=== PATIENT | male | born 1955 | race Caucasian/White ===

== ENCOUNTER → 2018-03-27 | Outpatient (CLI) | payer BC ==
--- NOTE | 2018-03-27 17:25 | CONS ---
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 HISTORY OF PRESENT ILLNESS/SLEEP WAKE EVALUATION: SLEEP SCHEDULE: Patient usual sleep schedule on weekdays from 10:30 p.m. until 5:20 a.m., on weekends from 11 p.m. until around 6:50, 6:55 am. FALLING ASLEEP: No problems with falling asleep, although he has TV set in bedroom. DURING SLEEP: He usually sleeps on the side position with his with snoring. The patient wakes up from sleep up to 2 times with up to 1 episode of nocturia. DURING THE DAY/SLEEP WAKE EVALUATION: He denied any significant excessive daytime sleepiness and does not take any naps. [place] Sleepiness Scale is 2. No history of hypnagogic hallucinations, sleep paralysis or cataplexy. PAST MEDICAL HISTORY: Basically negative. PAST SURGICAL HISTORY: Status post surgical treatment of melanoma 2004, umbilical hernia in 2012, right ankle repair 2013, pilonidal cyst surgery and hemorrhoidectomy. MEDICATIONS: Baby aspirin and turmeric. SOCIAL HISTORY: Negative for smoking or using alcohol. FAMILY HISTORY: Heart problems, snoring, cancer, diabetes. REVIEW OF SYSTEMS: Basically negative. PHYSICAL EXAM: gentleman without distress. BP 168/94, HR 82, RR 16, height 5 feet 11 inches, weight 231.8, body mass index 32.2, temperature 97.6, oxygen saturation at room air 97%. Oropharynx: Low position of soft palate. Mallampati 4. Some restriction of nasal breathing. Wide neck 16-1/2 inches in circumference. NECK: Supple, no JVD. Thyroid is not palpable. LUNGS Clear to percussion and to auscultation. Good air exchange. No wheezing or rhonchi. HEART S1, S2 regular. No murmurs, gallops, or rubs. ABDOMEN Soft and nontender. Bowel sounds are present. No organomegaly appreciated. EXTREMITIES No clubbing or cyanosis. STUDENT DEVELOPMENT SPECIALIST Awake, alert, and oriented X3. Cranial nerves 2 to 7 intact. There is no fasciculation or atrophy. noted. No focal deficits observed. IMPRESSION: 1. Snoring, extremely low position of soft palate, Mallampati 4, wide neck 16.5 inches in circumference. Possible obstructive sleep apnea-hypopnea syndrome. 2. Increased blood pressure today in the office. 3. History of melanoma status post surgical treatment in 2004. 4. Status post umbilical hernia repair 2012. 5. Status post right ankle surgery 2013. 6. Status post pilonidal cyst surgery. 7. Status post hemorrhoidectomy. PLAN: 1. Polysomnography for evaluation of patient's breathing during sleep. 2. CPAP/BiPAP titration if sleep study confirms obstructive sleep apnea-hypopnea syndrome. 3. Preferable position during sleep on the side. 4. No driving if patient feels any sleepiness. 5. I will see patient for follow up visit to explain results of testing and following plan. Thank you very much for referring this patient for evaluation. Sincerely, Paul Worrell MD, PhD, FAASM Diplomat of [employer] [facility] [place] MMODL / IJN: [id number] /
== END ==
LOC: SLEEP 15:52
PROVIDERS: ATTEND Internal Medicine
DX: R06.83 Snoring (principal); I10 Essential (primary) hypertension; Z85.820 Personal history of malignant melanoma of skin; Z98.890 Other specified postprocedural states; Z99.89 Dependence on other enabling machines and devices; Z79.82 Long term (current) use of aspirin; Z79.899 Other long term (current) drug therapy
CPT/HCPCS: 99211

== ENCOUNTER 2022-09-29 10:32 | Day surgery (SDC) | payer MEDICARE ==
[~2022-09-29 10:32] MED LIST: LACTATED RINGERS 1,000 ML IV SCH; LIDOCAINE 1% (10MG/ML) FOR IV START INTRADERMA PRN
[2022-09-29 10:54] VITALS: TEMP 97.3
[2022-09-29] MEDS ORDERED: PROPOFOL 10 MG/ML 20 ML VIAL IV ONE (11:27)
--- NOTE | 2022-09-29 11:46 | P.PCN ---
Date of Procedure: 09/29/22 Procedure(s) Performed: BRIEF HISTORY: Patient is a 67-year-old pleasant male scheduled for an elective colonoscopy as a part of screening for colon cancer. PROCEDURE PERFORMED: Colonoscopy with biopsy. PREOPERATIVE DIAGNOSIS: Screening for colon cancer. IV sedation per Anesthesia. PROCEDURE: After informed consent was obtained, the patient, was brought into the endoscopy unit. IV sedation was administered by Anesthesia under continuous monitoring. Digital rectal examination was normal. Initially the Olympus CF-160 flexible video colonoscope was then inserted in the rectum, gradually advanced into the cecum without any difficulty. Careful examination was performed as the scope was gradually being withdrawn. Ileocecal valve and the appendiceal orifice were visualized and appeared normal. Prep was excellent. Mucosa of the cecum, ascending colon, appeared normal. The transverse colon there was a 3 mm polyp that was removed by cold biopsy. Rest of the transverse colon, descending colon, appeared normal. The; there was a 4 mm polyp that was removed by cold biopsy. Scattered sigmoid diverticulosis seen. Rest of the sigmoid colon, and rectum appeared normal. Retroflexion was performed in the rectum and no lesions were seen. The patient tolerated the procedure well. IMPRESSION: 3 mm transverse colon polyp status post cold biopsy 4 mm colon polyp status post cold biopsy Scattered sigmoid diverticulosis RECOMMENDATIONS: Findings of this examination were discussed with the patient well as his family. He was advised to follow with the biopsy results and if the biopsy results adenoma he can have a repeat colonoscopy in 5 years..
[2022-09-29 11:50] VITALS: RESP 16
[2022-09-29 12:05] VITALS: BP 126/80; PULSE 54
== END 2022-09-29 12:21 | disposition home or self-care (01) ==
LOC: ORWHC2ENDO 10:32
PROVIDERS: ATTEND Internal Medicine Gastroenterology
DX: Z12.11 Encounter for screening for malignant neoplasm of colon (principal); K63.5 Polyp of colon; K57.30 Diverticulosis of large intestine without perforation or abscess without bleeding
CPT/HCPCS: 88305; 45380; J2704

== ENCOUNTER → 2023-11-21 | Outpatient (CLI) | payer MEDICARE ==
--- NOTE | 2023-11-24 15:41 | CT ---
EXAMINATION TYPE: CT left knee - ANTHONY Protocol DATE OF EXAM: 11/21/2023 COMPARISON: None HISTORY: 68-year-old male M1 7.12, osteoarthritis, pain, left anthony knee TECHNIQUE: CT of the bilateral hips, left knee, and bilateral ankles for surgical planning purposes. Coronal and sagittal reconstructions performed. CT DLP: 640 mGycm Automated exposure control for dose reduction was used. FINDINGS: There is sigmoid diverticulosis. Mild prostatomegaly 4.6 cm wide. Patulous right inguinal canal. Mult iple pelvic phleboliths. No abnormal fluid collection in the pelvis or pelvic lymphadenopathy. Mild degenerative change in both hips. No significant hip joint effusion on either side. The left knee shows trace joint effusion and tricompartmental osteoarthrosis with end-stage bone-on-b one degenerative change involving the medial compartment. Extensor mechanism appears intact. There is focal moderate osteoarthritic change along the lateral aspect of the tibiotalar joint on the right. Neither ankle shows any acute fracture, subluxation, or dislocation. Small delineation to the Achilles tendon. Partially visualized calcaneal screw fixation on the right. IMPRESSION: 1. HIPS: MILD BILATERAL HIP OA. SIGMOID DIVERTICULOSIS. MILD PROSTATOMEGALY OF 4.6 CM WIDE. 2. LEFT KNEE: TRICOMPARTMENTAL OA LEFT KNEE WITH END-STAGE [id number] CHANGE MEDIAL COMPARTMENT. 3. Ankles: Previous screw fixation right calcaneus partially visualized. Suspect some posttraumatic O A with moderate focal degenerative change lateral aspect of the right tibiotalar joint. [facility] 11/24/2023 3:34 PM [facility], Workstation [id number], 11/24/2023 3:38 PM
== END | disposition home or self-care (01) ==
LOC: RADCTMAIN 07:47
PROVIDERS: ATTEND Orthopaedic Surgery
DX: M17.12 Unilateral primary osteoarthritis, left knee